=== PATIENT | male | born 1965 | race Two or more races ===

== ENCOUNTER 2020-12-11 07:43 | Emergency (ER) | payer OTHER, MEDICAID ==
[~2020-12-11] VITALS: Ht 185.4 cm; Wt 99.8 kg
[2020-12-11] MEDS ORDERED: AMLODIPINE BESY10 MG PO (08:19)
[2020-12-11] MEDS ORDERED: GLUCOPHAGE500 MG PO (08:19)
[2020-12-11] MEDS ORDERED: LO-DOSE ASPIRIN81 MG PO (08:20)
[2020-12-11] MEDS ORDERED: JARDIANCE10 MG PO (08:36)
--- NOTE | 2020-12-11 09:10 | EKG ---
[facility] [address] [facility] [place], [place] [address] Signed Sinus tachycardia Otherwise normal ECG No previous ECGs available Confirmed by JOSEY NOLASCO MD ([id number] on 12/11/2020 9:10:30 AM Electronically Signed By: JOSEY NOLASCO MD 12/11/20 0910 PATIENT NAME: DEMETRIO TORO Electrocardiogram DATE OF : 61 PHYSICIAN: JOSEY NOLASCO MD REPORT #: [id number] REPORT IS CONFIDENTIAL AND NOT TO BE RELEASED WITHOUT AUTHORIZATION
[2020-12-11] MEDS ORDERED: NAPROSYN500 MG PO (09:48)
[2020-12-11] MEDS ORDERED: METFORMIN HCL500 MG PO (10:00)
== END 2020-12-11 10:47 | disposition home or self-care (01) ==
LOC: ED 07:43
DX: S20.219A Contusion of unspecified front wall of thorax, initial encounter (principal); V53.5XXA Driver of pick-up truck or van injured in collision with car, pick-up truck or van in traffic accident, initial encounter; E11.9 Type 2 diabetes mellitus without complications; I10 Essential (primary) hypertension; Z79.899 Other long term (current) drug therapy; Z79.84 Long term (current) use of oral hypoglycemic drugs; Z79.82 Long term (current) use of aspirin
CPT/HCPCS: 71045; 80053; 81001; 83690; 85025; 93005; 93010; 96374; 99284-25; J1885